=== PATIENT | female | born 1995 | race Two or more races ===

== ENCOUNTER 2025-01-21 19:42 | Emergency (ER) | payer MEDICAID, OTHER ==
[~2025-01-21] VITALS: Ht 160 cm; Wt 74.5 kg
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
[2025-01-21 20:21] VITALS: RESP 16; TEMP 97.2; O2SAT 98
[2025-01-21 20:25] VITALS: BP 127/84; PULSE 55
== END 2025-01-21 21:17 | disposition home or self-care (01) ==
LOC: ER 19:45
DX: S00.83XA Contusion of other part of head, initial encounter (principal); W50.0XXA Accidental hit or strike by another person, initial encounter; Y93.89 Activity, other specified; Y92.89 Other specified places as the place of occurrence of the external cause; Y99.8 Other external cause status